=== PATIENT | female | born 1980 | race Caucasian/White ===

== ENCOUNTER → 2016-03-19 | Outpatient (CLI) | payer BC ==
[~2016-03-19] MED LIST: FLUO20CA36 PO; MTR600X PO; OXYC-57 PO; POLY335019 PO; PRENTAB26 PO; SENNTAB23 PO; TYLOTC500 PO
== END | disposition home or self-care (01) ==
LOC: C.LAB 12:09
PROVIDERS: ATTEND Obstetrics & Gynecology
DX: O09.00 Supervision of pregnancy with history of infertility, unspecified trimester (principal); Z3A.00 Weeks of gestation of pregnancy not specified

== ENCOUNTER → 2016-04-04 | Outpatient (CLI) | payer BC ==
[2016-04-04 14:52] LABS: URINE APPEARANCE CLOUDY (CLEAR); URINE BILIRUBIN NEG (NEG); URINE COLOR YELLOW; URINE EPITHELIAL CELL AUTO >30 /lpf (0-5); URINE NITRITE NEG (NEG); URINE SPECIFIC GRAVITY 1.008 (1.000-1.030); UROBILINOGEN NEG (NEG)
[2016-04-04 14:54] LABS: MANUAL MICROSCOPIC REQUIRED? NO; REVIEW REQ? NO
== END | disposition home or self-care (01) ==
LOC: C.LABSPEC 13:46
PROVIDERS: ATTEND Obstetrics & Gynecology
DX: O09.529 Supervision of elderly multigravida, unspecified trimester (principal); Z3A.00 Weeks of gestation of pregnancy not specified

== ENCOUNTER → 2016-04-11 | Outpatient (CLI) | payer BC ==
[2016-04-11 16:41] LABS: BASO % 0.3 %; BASO ABS # 0.02 K/uL (0-0.2); COMPLETE YES; EOS % 0.4 %; HEMATOCRIT 42.5 % (37-47); IG% 0.3 %; LYMPH % 34.3 %; LYMPH ABS # 2.69 K/uL (1.2-3.4); MEAN CELL VOLUME 91.4 fL (80-100); MEAN CORPUSCULAR HGB CONC 35.1 g/dl (32-36); MEAN PLATELET VOLUME 10.2 fL (7.4-10.4); MONO % 5.1 %; NEUT % 59.6 %; PLATELET COUNT 264 K/uL (130-400); RED BLOOD COUNT 4.65 M/uL (4.2-5.4); WHITE BLOOD COUNT 7.85 K/uL (4.8-10.8)
== END | disposition home or self-care (01) ==
LOC: C.LAB1850 15:10
PROVIDERS: ATTEND Obstetrics & Gynecology
DX: O09.529 Supervision of elderly multigravida, unspecified trimester (principal)

== ENCOUNTER → 2016-04-11 | Outpatient (CLI) | payer BC ==
[2016-04-14 00:49] LABS: CHLAMYDIA TRACH RNA*** NOT DETECTED (NOT DETECTED); GC (NEIS GONORRHOEAE)RNA** NOT DETECTED (NOT DETECTED)
== END | disposition home or self-care (01) ==
LOC: C.LABSPEC 17:43
PROVIDERS: ATTEND Obstetrics & Gynecology
DX: O09.529 Supervision of elderly multigravida, unspecified trimester (principal)

== ENCOUNTER → 2016-04-11 | Outpatient (CLI) | payer BC | END | disposition home or self-care (01) | LOC: C.PAPS 11:10 | PROVIDERS: ATTEND Obstetrics & Gynecology | DX: O09.521 Supervision of elderly multigravida, first trimester (principal); Z3A.00 Weeks of gestation of pregnancy not specified; Z87.898 Personal history of other specified conditions; R87.616 Satisfactory cervical smear but lacking transformation zone ==

== ENCOUNTER → 2016-06-09 | Outpatient (CLI) | payer BC ==
[2016-06-09 19:09] LABS: GTGD 50 Grams
[2016-06-13 15:50] LABS: AFP CONCENTRATION 65.2 NG/ML; AFP MULTIPLE OF MEDIAN 1.82; AFPTS GESTATIONAL AGE 16.6 WEEKS; AFPTS INSULIN DEP DIABETIC? NO; AFPTS MATERNAL WT 146 LBS; ALPHA-FETOPROTEIN RACE CAUCASIAN=W; EDD DETERMINED BY ULTRASOUND; HISTORY OF NTD NO; REPEAT SAMPLE? NO
== END | disposition home or self-care (01) ==
LOC: C.LAB1850 15:02
PROVIDERS: ATTEND Obstetrics & Gynecology
DX: O09.521 Supervision of elderly multigravida, first trimester (principal)

== ENCOUNTER → 2016-08-29 | Outpatient (CLI) | payer BC ==
[2016-08-29 14:34] LABS: URINE APPEARANCE CLEAR (CLEAR); URINE BILIRUBIN NEG (NEG); URINE COLOR YELLOW; URINE EPITHELIAL CELL AUTO 20-30 /lpf (0-5); URINE NITRITE NEG (NEG); URINE PH 7.5 (4.5-7.5); URINE SPECIFIC GRAVITY 1.011 (1.000-1.030); UROBILINOGEN NEG (NEG)
[2016-08-29 14:35] LABS: MANUAL MICROSCOPIC REQUIRED? NO; REVIEW REQ? NO
[2016-08-29 14:40] LABS: HEMATOCRIT 36.6 % (37-47)
[2016-08-29 14:41] LABS: GTGD 50 Grams
== END | disposition home or self-care (01) ==
LOC: C.LAB1850 12:26
PROVIDERS: ATTEND Obstetrics & Gynecology
DX: O34.219 Maternal care for unspecified type scar from previous cesarean delivery (principal); Z3A.00 Weeks of gestation of pregnancy not specified

== ENCOUNTER 2016-11-11 09:54 | Inpatient (IN) | payer BC, OTHER ==
[2016-11-11] VITALS (9 sets, daily range): BP systolic 121–154; BP diastolic 75–86; PULSE 63–72; TEMP 36.2–36.6; O2SAT 97–100; Ht 165.1 cm; Wt 76.4 kg
[~2016-11-11] VITALS: Ht 165.1 cm; Wt 76.4 kg
[~2016-11-11 09:54] MED LIST changes: -FLUO20CA36 PO
--- NOTE | 2016-11-11 12:16 | DIAGNOSTIC IMAGING REPORT ---
ULTRASOUND BIOPHYSICAL PROFILE CLINICAL HISTORY: PROLONGED DECELERATION IN MD OFFICE COMPARISON STUDY: No previous studies for comparison. FINDINGS: A single live fetus in cephalic presentation was visualized. The placenta was right lateral. The maternal cervical length was 2.6 cm. The femur measured 7.8 cm corresponding to an estimated postmenstrual age of 39 weeks 5 days +/- 3 weeks. The heart rate was 138. The amniotic fluid index was 10.8 cm. The fetus received 2 points for movement, tone and amniotic fluid. No breathing was observed. This yields a biophysical profile score of 6 out of 8 points IMPRESSION: Biophysical profile score of 6 out of 8 points Electronically signed by: Kaleb Nobles M.D. 11/11/2016 12:14 PM Dictated Date/Time: 11/11/2016 12:12 PM
[2016-11-11] MEDS ORDERED: LACTATED RINGER'S 1000ML 1,000 ML IV SCH (12:42)
[2016-11-11] MEDS ORDERED: CITRIC ACID/SODIUM CITRATE 15 ML UDC PO ONE (12:45)
[2016-11-11 13:02] LABS: BASO % 0.2 %; BASO ABS # 0.02 K/uL (0-0.2); EOS % 0.4 %; HEMATOCRIT 38.1 % (37-47); IG% 1.3 %; LYMPH ABS # 2.61 K/uL (1.2-3.4); MEAN CELL VOLUME 92.9 fL (80-100); MEAN CORPUSCULAR HEMOGLOBIN 31.5 pg (25-34); MEAN PLATELET VOLUME 10.5 fL (7.4-10.4); MONO % 5.8 %; NEUT % 69.3 %; PLATELET COUNT 187 K/uL (130-400); WHITE BLOOD COUNT 11.35 K/uL (4.8-10.8)
[2016-11-11 13:07] LABS: COMPLETE YES; MEAN CORPUSCULAR HGB CONC 33.9 g/dl (32-36)
[2016-11-11] MEDS ORDERED: CEFAZOLIN IV 2,000 MG in DEXTROSE 5% 50ML 50 ML IV SCH (13:15)
[2016-11-11] MEDS ORDERED: MORPHINE SULFATE PF 2MG/2ML SYR ONE (13:37)
--- NOTE | 2016-11-11 14:41 | HISTORY & PHYSICAL EXAMINATION ---
DATE OF ADMISSION: 11/11/2016 ADMITTING DIAGNOSES: 1. Term at 38+ weeks' gestational age. 2. Nonreassuring heart rate tracing. 3. Previous delivery. 4. Desired permanent surgical sterilization. ADMISSION HISTORY: The patient is a 36-year-old 5, para 1 with an EDC of 19 November at 38 and 6/7 weeks' gestational age who was admitted from the office for nonreassuring heart rate tracing. The patient was seen in the office today for routine obstetrical visit and had a nonstress test performed. The nonstress test was for advanced maternal age. The nonstress test was reactive, but there was a 4-minute spontaneous deceleration noted in the office. Because of the deceleration, the patient was sent to labor and delivery for further evaluation. Up until this point, the patient has had a benign course. Her EDC was established by dates and confirmed by a first trimester ultrasound. The patient's first delivery was a section at 39 weeks for breech presentation with preeclampsia. The patient had been counseled on the risks and benefits of a vaginal after versus a repeat section and the patient had opted for a repeat section, which had been scheduled for the 14 of November. Laboratory values for the show a blood type of A positive, antibody negative, rubella immune, and hepatitis B negative. She had a negative Panorama and a negative maternal serum AFP screen. She had a normal 1-hour Glucola x2 and she had GBS in her urine at her first visit. PAST MEDICAL HISTORY: OBSTETRICAL: As above. GYNECOLOGICAL: Abnormal Pap smear with LEEP. MEDICAL: None. SURGICAL: [place] teeth extraction and tonsillectomy. ALLERGIES: No known drug allergies. SOCIAL HISTORY: No smoking. FAMILY HISTORY: Noncontributory. REVIEW OF SYSTEMS: As per HPI. ADMISSION PHYSICAL EXAMINATION: GENERAL: Shows a gravid female in no acute distress. VITAL SIGNS: Blood pressure of 136/90 and a weight of 168 pounds. HEENT EXAMINATION: Unremarkable. NECK: Supple. LUNGS: Clear. HEART: With a regular rhythm and rate. ABDOMEN: Gravid, vertex, positive heart tones, estimated weight of 6-1/2 pounds. PELVIC: Shows the cervix to be long, thick and closed. EXTREMITIES: Show no deep calf tenderness. NEUROLOGIC: Grossly intact. IMPRESSION: A 36-year-old 5, para 1 at 38 and 6/7th weeks' gestational age for repeat section with bilateral tubal ligation. PLAN: The patient was monitored here on labor and delivery and while the tracing was reactive, she did have a spontaneous deceleration for 4 minutes at term. There was no explanation to explain this and given that the patient had this spontaneous deceleration, it was decided to proceed with a repeat section for the nonreassuring tracing. The patient also adamantly desires no further childbearing capacity. She had been counseled on the risks and benefits of the tubal including the risk of failure of 1%-3%. The patient understands. Tubal papers as well as operative permit has been signed and she wishes to proceed. LETTY
[2016-11-11] MEDS ORDERED: ONDANSETRON INJ 2 MG/ML 2 ML VIAL ONE (14:43)
[2016-11-11] MEDS ORDERED: SUCCINYLCHOLINE CHLORIDE 20 MG/ML 10 ML VIAL IV ONE (14:43)
[2016-11-11] MEDS ORDERED: PHENYLEPHRINE HCL INJ 10 MG/ML VIAL ONE (14:43)
[2016-11-11] MEDS ORDERED: PROPOFOL IV EMULSION 10 MG/ML 20 ML VIAL IV ONE (14:43)
[2016-11-11] MEDS ORDERED: OXYTOCIN INJ 10 UNITS/ML VIAL ONE (14:43)
[2016-11-11] MEDS ORDERED: FENTANYL CITRATE INJ 50 MCG/1 ML 2 ML VIAL ONE (14:46)
[2016-11-11] MEDS ORDERED: GLYCOPYRROLATE INJ 0.2 MG/ML VIAL ONE (14:50)
[2016-11-11] MEDS ORDERED: NEOSTIGMINE METHYLSULFATE 5 MG/5 ML SYR ONE (14:50)
[2016-11-11] MEDS ORDERED: SENNA 8.6 MG TAB PO PRN (15:00)
[2016-11-11] MEDS ORDERED: LANOLIN OINT EXT PRN ×2 (15:00)
[2016-11-11] MEDS ORDERED: BENZOCAINE 20% AER SPR 82.5 GM CAN EXT PRN (15:00)
[2016-11-11] MEDS ORDERED: HYDROCORTISONE ACETATE 25 MG SUPP PR PRN (15:00)
[2016-11-11] MEDS ORDERED: SUPERCREAM 0.870 % 15GM JAR EXT PRN (15:00)
[2016-11-11] MEDS ORDERED: MAGNESIUM HYDROXIDE SUSP 30 ML UDC PO PRN (15:00)
[2016-11-11] MEDS ORDERED: DEXAMETHASONE SOD INJ 4 MG/ML VIAL ONE (15:06)
--- NOTE | 2016-11-11 15:08 | [facility] Operative Report ---
Operative Report Operative Date Nov 11, 2016. Pre-Operative Diagnosis Term nonreassuring heartrate , previous caesarean section that desires permanent sterilization. Post-Operative Diagnosis Term nonreassuring heartrate , previous caesarean section that desires permanent sterilization. Procedure(s) Performed Repeat caesarean section for a living male child at 1437. Bilateral tubal ligation Surgeon Dr. Nevarez Water Service Dispatcher Surgeon(s) Dr. Arreaga Estimated Blood Loss 800 Findings Viable male infant, APGARS 9/9, 3420 grams. Normal-appearing uterus, fallopian tubes, & ovaries bilaterally Fluids 1500 Specimens placenta- hold cord blood arterial and venous cord gases portion of left and right fallopian tubes Drains [place] 200 ml, clear urine Anesthesia General Complication(s) None Disposition L&D I attest to the content of the Intraoperative Record and any orders documented therein. Any exceptions are noted below.
[2016-11-11] MEDS ORDERED: KETOROLAC TROMETHAMINE 30 MG/ML VIAL ONE (15:22)
[2016-11-11] MEDS ORDERED: NALOXONE HCL INJ 0.08 MG in SYRINGE 1.8 ML IV PRN (15:25)
[2016-11-11] MEDS ORDERED: SODIUM CHLORIDE 0.9% 1000ML 1,000 ML IV PRN (15:25)
[2016-11-11] MEDS ORDERED: NALOXONE HCL INJ 1 MG in SODIUM CHLORIDE 0.9% 1000ML 1,000 ML IV PRN (15:25)
[2016-11-11] MEDS ORDERED: LACTATED RINGER'S 1000ML 500 ML IV PRN (15:25)
[2016-11-11] MEDS ORDERED: ACETAMINOPHEN 1000 MG/100 ML IV IV ONE ×2 (15:29→15:30)
[2016-11-11] MEDS ORDERED: NALBUPHINE HCL INJ 10 MG/ML AMP IV PRN (15:30)
[2016-11-11] MEDS ORDERED: NALOXONE HCL 0.4 MG/1 ML VIAL/CARP IV PRN (15:30)
[2016-11-11] MEDS ORDERED: EpHEDrine SULFATE INJ 50 MG/ML AMP IV PRN (15:30)
[2016-11-11] MEDS ORDERED: MoRPHine SULFATE 2 MG/ML CARP IV PRN (15:30)
[2016-11-11] MEDS ORDERED: MEPERIDINE HCL 25 MG/ML CARP IV PRN (15:30)
[2016-11-11] MEDS ORDERED: ONDANSETRON INJ 2 MG/ML 2 ML VIAL IV PRN (15:30)
[2016-11-11] MEDS ORDERED: MoRPHine SULFATE PF 1 MG/ML 10 ML AMP/VIAL INT SPINAL PRN (15:30)
[2016-11-11] MEDS ORDERED: DiphenhydrAMINE HCL 50 MG/ML VIAL IV PRN (15:30)
[2016-11-11] MEDS ORDERED: DIPHTHERIA/TETANUS/PERTUSSIS 0.5 ML SYR/VIAL IM. ONE (15:30)
[2016-11-11] MEDS ORDERED: DC INTRASPINAL MORPHINE SCH (15:30)
[2016-11-11] MEDS ORDERED: NO NARCOTICS OR SEDATIVES SCH (15:30)
--- NOTE | 2016-11-11 15:30 | Anesthesiology Progress Note ---
Anesthesia Post Op Note Date & Time Nov 11, 2016 at 15:29 Notes Mental Status: alert / awake / arousable, participated in evaluation Pt Amnestic to Procedure: Yes Nausea / Vomiting: adequately controlled Pain: adequately controlled, improving with treatment Airway Patency, RR, SpO2: stable & adequate BP & HR: stable & adequate Hydration State: stable & adequate Neuraxial Anesthesia: was administered, sensory block is resolving Anesthetic Complications: no major complications apparent
[2016-11-11] MEDS: KETOROLAC TROMETHAMINE 30 MG/ML VIAL IV. PRN ×2 (15:37→21:37)
[2016-11-11] MEDS ORDERED: LORAZEPAM INJ 0.5 MG in SYRINGE 0.25 ML IV STA (16:15)
[2016-11-11] MEDS ORDERED: HYDROmorphone INJ 1 MG/ML SYR IV PRN (16:15)
[2016-11-11] MEDS: OXYTOCIN INJ 20 UNITS in LACTATED RINGER'S 1000ML 1,000 ML IV SCH (16:40)
[2016-11-11] MEDS: SIMETHICONE 80 MG CHEW PO SCH ×2 (17:25→20:03)
--- NOTE | 2016-11-11 18:22 | OPERATIVE REPORT ---
DATE OF OPERATION: 11/11/2016 PREOPERATIVE DIAGNOSES: 1. Term . 2. Nonreassuring heart rate tracing. 3. Previous section. 4. Desired permanent surgical sterilization. POSTOPERATIVE DIAGNOSES: Same. PROCEDURES PERFORMED: 1. Repeat low cervical transverse section. 2. Bilateral tubal ligation. SURGEON: Dr. Nevarez. ASBESTOS SHINGLE INSPECTOR: Dr. Loi Arreaga. ANESTHESIA: General endotracheal due to failed spinal. FINDINGS: Viable male with Apgars of 8 and 9 and weight of 7 pounds 8 ounces. Normal appearing tubes and ovaries bilaterally. Arterial and venous cord gases are pending. Bilateral tubal ligation performed. PROCEDURE IN DETAIL: The patient was taken to the operating room and initially had a spinal anesthesia placed and was prepped and draped in a sterile fashion. After 15 minutes, there was not an adequate spinal level estimated approximately T12-L1. At this point, anesthesia felt prudent to proceed with general endotracheal anesthesia. After placement of the endotracheal tube, a Pfannenstiel type incision through previous surgical scar was made. Underlying subcutaneous tissue was dissected down to the ventral abdominal fascia, which was nicked and opened in a horizontal manner. Preperitoneal fascia was dissected away until the peritoneal cavity was entered and opened in a vertical manner. Bladder blade was placed. Uterus was entered sharply and extended in a semi-lunar fashion manually. Viable male infant with description as above was delivered. Cord was clamped and cut and the baby was passed off to pediatric, who was in attendance for the delivery. Cord gases and cord blood samples obtained. Placenta was delivered spontaneously and the uterus was exteriorized. Uterine cavity was wiped clean of any residual blood tissue and/or clot. Hemabate 250 mcg was injected directly into the myometrium. Uterine incision was then closed with 2 layers of 4-0 Vicryl, the first a running locking stitch and the second an imbricating stitch. Hemostasis was achieved. Dissection was then turned to the adnexa. The right fallopian tube was isolated followed to the fimbriated end, a segment of which was elevated, doubly ligated with 0 plain suture, cut and removed from the field. In a similar fashion, the left fallopian tube was isolated followed to the fimbriated end, a segment of which was elevated, doubly ligated with 0 plain suture, cut and removed from the field. Hemostasis present and the uterus was returned to the pelvic cavity. Pericolic gutters were cleared bilaterally of any blood tissue and/or clot. The uterine incision and tubal stumps were inspected for hemostasis, which was present. Sponge and needle count was correct. The rectus muscles were plicated in the midline with a running 2-0 Vicryl stitch. The fascia was closed laterally with a running 0 Vicryl suture. Subcutaneous tissue was irrigated with warm saline and the skin incision was closed with a 4-0 Vicryl subcuticular suture. Sterile dressing was applied and the patient was taken to the recovery room in satisfactory condition. I attest to the content of the Intraoperative Record and any orders documented therein. Any exception s are noted below.
[2016-11-12] VITALS (13 sets, daily range): BP systolic 115–131; BP diastolic 71–76; PULSE 66–84; TEMP 36.5–36.7; O2SAT 96–98
[2016-11-12] MEDS: OXYTOCIN INJ 20 UNITS in LACTATED RINGER'S 1000ML 1,000 ML IV SCH (01:02)
[2016-11-12] MEDS: KETOROLAC TROMETHAMINE 30 MG/ML VIAL IV. PRN (05:55)
--- NOTE | 2016-11-12 06:48 | Progress Note ---
Subjective Nov 12, 2016. Subjective conversation w/ patient, physical exam, chart review, lab review Ambulation: limited ambulation (not oob yet) Voiding: martell catheter in place Passing Gas: No Diet Tolerance: Clear Liquids (no N/V) Lochia: Small Feeding Type: Bottle Feeding Pain: Notes some cramping Comment: Found pt lying upright in bed, appears calm. Says she hasn't been out of bed yet but plans on it this morning. Says pain controlled overnight. No acute c/ o. Review of Systems Constitutional: No fever, No chills Respiratory: No cough, No shortness of breath Cardiac: No chest pain, No edema Abdomen: No nausea, No vomiting, No diarrhea Objective Vital Signs Date Time Temp Pulse Resp B/P (MAP) Pulse Ox O2 Delivery O2 Flow Rate FiO2 11/12/16 06:00 16 97 11/12/16 05:00 16 97 11/12/16 04:00 16 96 11/12/16 03:50 36.7 68 16 115/76 (89) 96 Room Air 11/12/16 03:00 16 97 11/12/16 02:00 16 97 11/12/16 01:00 16 98 11/12/16 00:00 16 98 11/11/16 23:25 99 Room Air 11/11/16 23:25 36.6 72 16 121/75 (90) 99 Room Air 11/11/16 23:00 18 98 11/11/16 22:00 20 99 11/11/16 21:00 20 100 11/11/16 20:00 18 100 11/11/16 19:25 36.4 66 20 138/86 (103) 98 Room Air 11/11/16 19:25 98 Room Air 11/11/16 19:00 16 100 11/11/16 18:25 36.2 63 20 154/83 (106) 100 Room Air 11/11/16 17:55 20 97 11/11/16 17:55 97 Room Air 11/11/16 17:55 36.6 66 20 127/79 (95) 97 Physical Exam General Appearance: WD/WN, NO APPARENT DISTRESS Respiratory/Chest: lungs clear, normal breath sounds, no respiratory distress Cardiovascular: regular rate, rhythm, no edema, no murmur Abdomen: normal bowel sounds, non tender, soft Fundus: Firm, Tender (minimal), Relation to Umbilicus (at umbilicus) Incision Description: Clean, Dry & Intact (dressing in place) Extremities: non-tender, no calf tenderness Laboratory Results Last 24 Hours Test 11/11/16 12:49 11/12/16 06:00 White Blood Count 11.35 K/uL Red Blood Count 4.10 M/uL Hemoglobin 12.9 g/dL Hematocrit 38.1 % Mean Corpuscular Volume 92.9 fL Mean Corpuscular Hemoglobin 31.5 pg Mean Corpuscular Hemoglobin Concent 33.9 g/dl Platelet Count 187 K/uL Mean Platelet Volume 10.5 fL Neutrophils (%) (Auto) 69.3 % Lymphocytes (%) (Auto) 23.0 % Monocytes (%) (Auto) 5.8 % Eosinophils (%) (Auto) 0.4 % Basophils (%) (Auto) 0.2 % Neutrophils # (Auto) 7.86 K/uL Lymphocytes # (Auto) 2.61 K/uL Monocytes # (Auto) 0.66 K/uL Eosinophils # (Auto) 0.05 K/uL Basophils # (Auto) 0.02 K/uL RDW Standard Deviation 43.0 fL RDW Coefficient of Variation 12.9 % Immature Granulocyte % (Auto) 1.3 % Immature Granulocyte # (Auto) 0.15 K/uL Assessment and Plan Post-Op Day#: 1 Continue Routine Care: 36F s/p for nonreassuring heart rate tracing, s/p tubal ligation, now PPD #1. - Blood type A positive. GBS positive. Rubella immune. - Vital signs reviewed and stable. - Pain controlled with toradol overnight. - No leg swelling or tenderness on calf palpation. Encourage ambulation. - Pt plans on bottle feeding only. - Hemoglobin pre-delivery 12.9, post-delivery pending this am. Bleeding has improved. Continue to monitor clinically. - Continue routine post delivery care. - Pt agreed with above plan, all current questions answered. Ananth Arreaga MD, PGY1 Mailing Specialist Physician Supervision Note: I interviewed and examined the patient. Discussed with Dr. Arreaga and agree with findings and plan as documented in the note. Any exceptions or clarifications are listed here: Patient was on Prozac prior to , wants to restart. Will order Documented By: Vu Nevarez Resident Tracking Resident Involvement: Resident Care Provided Care Provided: OB Delivery (OB rounds)
[2016-11-12] MEDS: FERROUS SULFATE 325 MG TAB PO SCH (07:26)
[2016-11-12] MEDS: PRENATAL VITAMIN TAB PO SCH (07:26)
[2016-11-12] MEDS: SIMETHICONE 80 MG CHEW PO SCH ×4 (07:27→19:47)
[2016-11-12 07:29] LABS: BASO % 0.1 %; BASO ABS # 0.02 K/uL (0-0.2); COMPLETE YES; EOS % 0.2 %; HEMATOCRIT 30.2 % (37-47); IG% 0.5 %; LYMPH % 18.9 %; LYMPH ABS # 2.75 K/uL (1.2-3.4); MEAN CELL VOLUME 92.6 fL (80-100); MEAN CORPUSCULAR HEMOGLOBIN 31.6 pg (25-34); MEAN CORPUSCULAR HGB CONC 34.1 g/dl (32-36); MEAN PLATELET VOLUME 10.5 fL (7.4-10.4); NEUT % 73.3 %; PLATELET COUNT 161 K/uL (130-400); RED BLOOD COUNT 3.26 M/uL (4.2-5.4); WHITE BLOOD COUNT 14.56 K/uL (4.8-10.8)
[2016-11-12] MEDS: FLUOXETINE HCL 20 MG CAP PO SCH (07:48)
[2016-11-12] MEDS ORDERED: ONDANSETRON INJ 2 MG/ML 2 ML VIAL IV PRN (08:15)
[2016-11-12] MEDS ORDERED: PROMETHAZINE HCL INJ 25 MG in SODIUM CHLORIDE 0.9% 50ML 50 ML IV PRN (08:15)
[2016-11-12] MEDS ORDERED: KETOROLAC TROMETHAMINE 30 MG/ML VIAL IV. PRN (08:15)
[2016-11-12] MEDS ORDERED: DiphenhydrAMINE HCL 50 MG/ML VIAL IV PRN (08:15)
[2016-11-12] MEDS: OXYCODONE/ACETAMINOPHEN 5-325 TAB PO PRN ×3 (10:04→19:48)
[2016-11-12] MEDS: IBUPROFEN 600 MG TAB PO PRN ×3 (10:04→19:48)
--- NOTE | 2016-11-12 19:19 | Discharge Instructions ---
Discharge Instructions Date of Service Nov 12, 2016. Admission Reason for Admission: Extended Monitoring Discharge Discharge Diagnosis / Problem: after surgery Discharge Goals Goal(s): Routine recovery after Medications Continue Dispensed Medications: supercream, dermaplast, tucks, lansinoh Activity Recommendations Activity Limitations: as noted below . Instructions / Follow-Up Instructions / Follow-Up ACTIVITY RECOMMENDATIONS: * Gradual return to full activity over the next 2-3 weeks. * No lifting - nothing heavier than baby over the next 2-3 weeks. * Do not engage in vigorous exercise, sexual activity or sports until cleared by your physician. * Do not drive or operate any motorized equipment until cleared by your physician. * You may shower/bathe daily. MEDICATIONS: For discomfort or pain, you may use Acetaminophen (Tylenol), Ibuprofen (Advil), or Naproxen (Aleve) following the package directions. For constipation you may use Colace following the package directions. BREAST CARE: If you are not breast feeding: * Wear a supportive bra 24 hours a day for one to two weeks. * Avoid stimulating your breasts and nipples as much as possible during the first few weeks after delivery. * When taking a shower, have the warm water hit your back, not breasts. * When your breasts feel full, apply ice packs. Usually three to four times a day helps ease the discomfort. * Take a mild pain medication (Tylenol / Motrin) when you are uncomfortable. If breast feeding: * Use breast milk to lubricate nipples. Lansinoh cream may be used for sore nipples. You do not need to remove cream prior to breast feeding. If using a different brand of cream, check the label for directions regarding removal of cream prior to nursing. * Wear a supportive bra. * If having problems with breasts or breast feeding, call a wellness consultant or your health care provider. SPECIAL CARE INSTRUCTIONS: When you are discharged from the hospital, it is important for you to follow the instructions listed below: * During the first week at home, you should be able to care for yourself and your baby. In addition, the usual light household activities are encouraged. * Limit your activities to the way you feel. Do not try to clean the house or move furniture. Be sensible. * If you actively engage in sports and have done so up until the time of your delivery, you may resume these activities as soon as you feel able. This may take up to one month or even longer. Use good judgment. * Continue to take your vitamins for at least six weeks after the of your baby. * Your diet need not be limited unless you were on a special diet before your delivery. Breast-feeding mothers need around 2500 calories per day and at least 64-80 ounces of fluid per day (8 to 10 glasses). * You should eat foods from the four major food groups. Crash diets or fad diets are to be avoided. Eating lean meats, fresh fruits and vegetables, low-fat dairy products, high fiber foods and a regular exercise program, will help you get back to your pre- weight without putting your health at risk. * Constipation is sometimes a problem after delivery. Take a mild laxative as needed. If breast feeding, Milk of Magnesia is acceptable to use. You may use a suppository or Fleets enema. * A daily shower or tub bath is suggested. Wash incision daily with warm soapy water and pat dry. It doesn't need to be covered unless drainage is present. * A bloody vaginal discharge will usually continue until around four weeks . A small amount of bleeding may continue for as long as six weeks. Vaginal discharge changes from the bright red bleeding after delivery to pink then brownish and finally yellowish-pink before becoming white and disappearing. * Bleeding may increase with activity. Your first period may come in 4-8 weeks. If you are breast feeding, your period may be delayed even longer. * Zeigler (sex) can begin whenever both you and your partner feel comfortable and do not have any form of genital infection. It is recommended that you wait at least six weeks for internal and external healing to occur. If you have questions, please talk to your health care practitioner. A condom should be used to prevent infection and . * Foreplay, gentle intercourse and lubrication is very important the first several times to prevent pain. A water-based lubricant such as K-Y jelly or Astroglide may be used. * If you have RH negative blood and your baby is RH positive, you will receive RHOGAM by injection prior to discharge. The nurse will give you a card to keep with you that has the date and place that you received RHOGAM after delivery. * During your care, you had a Rubella screen done to check for the presence of rubella antibodies in your blood. If your test was negative, you will receive a Rubella vaccine prior to discharge. This vaccine may cause a fever, soreness at the injection site and flu-like symptoms. If these symptoms persist, notify your health care practitioner. is not advised for one month after a Rubella vaccine. * Verbalizes understanding of car seat law as reviewed with patient nursing. * Car Seat hand-out given and reviewed with patient by nursing. * Shaken baby information reviewed with patient by nursing. Call you doctor if: * Heavy bleeding (saturating several pads an hour) or passing clots the size of your fist. * A fever >101 degrees F (38.3 degrees C) on two occasions four hours apart and /or chills. * Unusual pain in the pelvic or vaginal areas. * Call the doctor for any increased redness, drainage or swelling around the incision and any pain unrelieved by prescribed pain medication. * "Baby Blues" lasting longer than two weeks. If you have any questions or concerns, call your health care practitioner at . FOLLOW UP VISIT: * Please call the office at to schedule a 6 week examination. It is important you keep this appointment. It is important for you to make arrangements for either yearly or twice yearly check-ups thereafter. Current Hospital Diet Patient's current hospital diet: Clear Liquid Diet Discharge Diet Recommended Diet: Regular Diet Procedures Procedures Performed: Repeat caesarean section for a living male child at 1437. Bilateral tubal ligation Pending Studies Studies pending at discharge: yes List of pending studies: pathology Medical Emergencies . Who to Call and When: Medical Emergencies: If at any time you feel your situation is an emergency, please call [phone] immediately. . Non-Emergent Contact Non-Emergency issues call your: Hot Tar Roofer . . "Provider Documentation" section prepared by Catherine Nicole. . VTE Core Measure Inpt VTE Proph given/why not?: [facility] [place] Search Results: patient reviewed within database, no issues identified
[2016-11-12] MEDS ORDERED: BISACODYL 5 MG TABEC ONE (19:43)
[2016-11-12] MEDS ORDERED: BISACODYL 5 MG TABEC PO ONE (22:00)
[2016-11-13] MEDS: IBUPROFEN 600 MG TAB PO PRN ×4 (02:05→19:56)
[2016-11-13] MEDS: OXYCODONE/ACETAMINOPHEN 5-325 TAB PO PRN ×5 (02:06→19:56)
[2016-11-13 06:07] LABS: HEMATOCRIT 31.3 % (37-47)
[2016-11-13] MEDS: SIMETHICONE 80 MG CHEW PO SCH ×4 (07:23→19:58)
[2016-11-13] MEDS: FERROUS SULFATE 325 MG TAB PO SCH (07:24)
[2016-11-13] MEDS: PRENATAL VITAMIN TAB PO SCH (07:24)
[2016-11-13 07:30] VITALS: BP 136/90; PULSE 86; TEMP 36.7; O2SAT 96
[2016-11-13] MEDS: FLUOXETINE HCL 20 MG CAP PO SCH (07:30)
--- NOTE | 2016-11-13 08:03 | Progress Note ---
Subjective Nov 13, 2016. Subjective conversation w/ patient Ambulation: ambulating normally Voiding: no voiding problems Passing Gas: No Diet Tolerance: Clear Liquids Lochia: Small Feeding Type: Bottle Feeding Pain: gas pain Objective Vital Signs Date Time Temp Pulse Resp B/P (MAP) Pulse Ox O2 Delivery O2 Flow Rate FiO2 11/12/16 23:59 96 Room Air 11/12/16 15:00 36.6 66 18 131/72 (91) 97 Room Air 11/12/16 15:00 97 Room Air 11/12/16 11:30 97 Room Air 11/12/16 11:30 36.6 70 18 116/71 (86) 97 Room Air 11/12/16 11:30 8 97 11/12/16 08:30 18 97 Physical Exam General Appearance: WELL-APPEARING, WD/WN, NO APPARENT DISTRESS Respiratory/Chest: lungs clear Cardiovascular: regular rate, rhythm Abdomen: normal bowel sounds, non tender, soft Fundus: Firm, Relation to Umbilicus (2 down, appro tender) Incision Description: Clean, Dry & Intact Extremities: non-tender Laboratory Results Last 24 Hours Test 11/13/16 05:54 Hemoglobin 10.6 g/dL Hematocrit 31.3 % Assessment and Plan Post-Op Day#: 2 Continue Routine Care: stable, routine care. enc ambulation to help with bowel function. rec clears only until passing gas due to her discomfort
[2016-11-13] MEDS ORDERED: OXYC-57 PO (08:04)
[2016-11-13] MEDS ORDERED: MTR600X PO (08:04)
[2016-11-13] MEDS ORDERED: BISACODYL 10 MG SUPP PR PRN (15:00)
[2016-11-13 15:45] VITALS: BP 138/88; PULSE 63; TEMP 36.5; O2SAT 97
[2016-11-13 20:35] VITALS: BP 133/88; PULSE 68; TEMP 36.7
[2016-11-13 23:20] VITALS: BP 134/78; PULSE 82; TEMP 36.8; O2SAT 97
[2016-11-14] MEDS: IBUPROFEN 600 MG TAB PO PRN ×3 (05:22→18:06)
[2016-11-14] MEDS: OXYCODONE/ACETAMINOPHEN 5-325 TAB PO PRN ×3 (05:23→18:06)
--- NOTE | 2016-11-14 06:36 | Progress Note ---
Subjective Nov 14, 2016. Subjective conversation w/ patient, physical exam, chart review, lab review Ambulation: ambulating normally Voiding: no voiding problems Passing Gas: Yes Diet Tolerance: Regular Diet Lochia: Small Feeding Type: Bottle Feeding Pain: "Burning" pain along right aspect of incision, otherwise sore Comment: Found pt standing in the nursery. Says passing gas, ate solid foods without N/V , feels sore and "burning" around incision. Otherwise no acute c/o. Review of Systems Constitutional: No fever, No chills Respiratory: No cough, No shortness of breath Cardiac: No chest pain Abdomen: No nausea, No vomiting, No diarrhea Female : No dysuria Objective Vital Signs Date Time Temp Pulse Resp B/P (MAP) Pulse Ox O2 Delivery O2 Flow Rate FiO2 11/13/16 23:20 36.8 82 18 134/78 (96) 97 Room Air 11/13/16 23:20 97 Room Air 11/13/16 20:35 36.7 68 18 133/88 (103) 11/13/16 15:45 36.5 63 18 138/88 (105) 97 Room Air 11/13/16 15:45 97 Room Air 11/13/16 07:30 96 Room Air 11/13/16 07:30 36.7 86 18 136/90 (105) 96 Room Air Physical Exam General Appearance: WELL-APPEARING, WD/WN, NO APPARENT DISTRESS Respiratory/Chest: lungs clear, normal breath sounds Cardiovascular: regular rate, rhythm, no murmur Abdomen: normal bowel sounds, non tender, soft Fundus: Firm, Tender (mild), Relation to Umbilicus (approx three down) Incision Description: Clean, Dry & Intact (dermabond in place, no d/c or surrounding erythema) Extremities: normal range of motion, no calf tenderness, + pedal edema ( minimal bilateral edema) Assessment and Plan Post-Op Day#: 3 Continue Routine Care: 36F s/p for HR deceleration, s/p tubal ligation, now PPD #3. - Blood type A positive. GBS positive. Rubella immune. - Vital signs reviewed and stable. - Pain controlled with motrin & percocet. - No leg swelling or tenderness on calf palpation. Encourage ambulation. - Pt is bottle feeding. - Hemoglobin pre-delivery 12.9, post-delivery trended 10.3 & 10.6. Continue to monitor clinically. - Restarted home Prozac for anxiety. - Continue routine post delivery care. - Pt agreed with above plan, all current questions answered. Ananth Arreaga MD, PGY1 Brand Advisor Physician Supervision Note: I was present with Dr. Arreaga during the history and exam. I discussed the case with the resident and agree with the findings and plan as documented in the note. Any exceptions or clarifications are listed here: Desires d/c home to nesting. Baby will need to stay in nursery. Documented By: Catherine Nicole Resident Tracking Resident Involvement: Resident Care Provided Care Provided: OB Delivery (OB rounds)
[2016-11-14 07:35] VITALS: BP 139/82; PULSE 65; TEMP 36.7; O2SAT 98
[2016-11-14] MEDS: FERROUS SULFATE 325 MG TAB PO SCH (07:44)
[2016-11-14] MEDS: FLUOXETINE HCL 20 MG CAP PO SCH (07:44)
[2016-11-14] MEDS: SIMETHICONE 80 MG CHEW PO SCH ×3 (07:44→18:05)
[2016-11-14] MEDS: PRENATAL VITAMIN TAB PO SCH (07:44)
[2016-11-14] MEDS ORDERED: FLUO20CA36 PO (08:00)
[2016-11-14 15:15] VITALS: BP 151/91; PULSE 67; TEMP 36.3; O2SAT 98
[2016-11-14 15:52] VITALS: BP_DIAS 91; PULSE 67; TEMP 36.3
--- NOTE | 2016-11-15 08:44 | DISCHARGE SUMMARY ---
ADMITTING DIAGNOSES: 1. Term at 38+ weeks' gestational age. 2. Nonreassuring heart rate tracing. 3. Previous section. 4. Desired permanent surgical sterilization. POSTOPERATIVE DIAGNOSES: Same. PROCEDURES PERFORMED: 1. Repeat low cervical transverse section. 2. Bilateral tubal ligation. DISCHARGE MEDICATIONS: 1. Percocet 5/325, 1-2 p.o. q. 4-6 hours p.r.n. pain. 2. Motrin 600 mg p.o. q. 6 hours p.r.n. pain. 3. Prozac 40 mg p.o. q. daily. ADMISSION HISTORY: The patient is a 36-year-old 5, para 1 with an EDC of 19 November at 38 and 6/7th weeks' gestational age, who presented to the labor and delivery from the office for nonreassuring heart rate tracing. The patient was seen in the office today for routine obstetrical visit and had a nonstress test performed. A nonstress test was done for advanced maternal age. Nonstress test was reassuring, but there was a 4-minute spontaneous deceleration noted in the office. Because of the decelerations, the patient was sent to labor and delivery for further evaluation. Up until this point, the patient has had a benign course. Her EDC was established by dates and confirmed by first trimester ultrasound. The patient's first delivery was a section at 39 weeks' gestational age for breech presentation with preeclampsia. The patient had been counseled on the risks and benefits of a vaginal after and the patient has opted for a repeat section, which was scheduled for 14 November. Laboratory values for the showed a blood type of A positive, antibody negative, and rubella immune. She had a negative Panorama screen and a negative maternal serum AFP. She had a normal 1-hour Glucola x2 and had GBS bacteria at the first visit. ADMISSION PHYSICAL EXAMINATION: GENERAL: A gravid female in no acute distress. VITAL SIGNS: Blood pressure 136/90 and a weight of 168 pounds. HEENT: Unremarkable. NECK: Supple. LUNGS: Clear. HEART: With a regular rhythm and rate. ABDOMEN: Gravid, vertex, positive heart tones, estimated weight of 6-1/2 pounds. PELVIC: Showed the cervix to be long, thick and closed. EXTREMITIES: Showed no deep calf tenderness. NEUROLOGIC: Grossly intact. ADMISSION LABORATORY VALUES: Showed an H&H of 12.9 and 38.1. HOSPITAL COURSE: The patient was monitored on labor and delivery for an extended period of time and while the tracing was reactive, she had had a spontaneous deceleration for 4 minutes at term in the office. There was no explanation to explain this and given that the patient had had a spontaneous deceleration, it was decided to proceed with a repeat section for the nonreassuring tracing. The patient also adamantly desired no further childbearing capacity and she had been counseled on the risks and benefits of the tubal including the risk of failure of 1%-3%. Anesthesia and pediatrics were notified and the patient was taken to the operating room. The patient had a spinal anesthesia placed; however, the level did not climb of above approximately T12, which necessitated a general endotracheal anesthesia. The patient delivered a viable male with Apgars of 8 and 9 and a weight of 7 pounds 8 ounces. Normal appearing tubes and ovaries bilaterally. Bilateral segment of fallopian tubes were removed for tubal ligation. Postoperatively, the patient did well. [place] was removed on the first postoperative day. H&H came back at 10.3 and 30.2. The baby suffered some transient tachypnea of the and chest x-ray was suggestive of possible pneumonia and the baby was started on antibiotics. On postoperative day #3, the patient requested discharge to nesting status to allow ambulation out of the hospital. She was given the routine discharge instructions and the prescriptions for the medications as listed as above. She is going to follow up in the office in 2 weeks' time for a postoperative check, but as always she was instructed to call with any questions, problems or difficulties. LETTY
== END 2016-11-14 18:00 | disposition home or self-care (01) | DRG 766 ==
LOC: C.OPB 09:54 → C.LD 09:54 → C.OPB 12:45 → C.LD 12:45 → C.OBG 18:01
PROVIDERS: ADMIT Obstetrics & Gynecology; ATTEND Obstetrics & Gynecology
PROC: 0UB70ZZ Excision of Bilateral Fallopian Tubes, Open Approach (ICD-10-PCS; principal; 2016-11-11 13:12)
PROC: 10D00Z1 Extraction of Products of Conception, Low, Open Approach (ICD-10-PCS; principal; 2016-11-11 13:12)
DX: O76 Abnormality in fetal heart rate and rhythm complicating labor and delivery (principal); O34.211 Maternal care for low transverse scar from previous cesarean delivery; Z37.0 Single live birth; O99.824 Streptococcus B carrier state complicating childbirth; O09.523 Supervision of elderly multigravida, third trimester; Z3A.38 38 weeks gestation of pregnancy; Z30.2 Encounter for sterilization

== ENCOUNTER → 2017-04-06 | Outpatient (CLI) | payer OTHER ==
[~2017-04-06] MED LIST changes: +FLUO20CA36 PO; -POLY335019 PO; -TYLOTC500 PO
[2017-04-06 15:59] LABS: HEMATOCRIT 44.1 % (37-47); HEMOGLOBIN 15.4 g/dL (12.0-16.0); MEAN CELL VOLUME 90.2 fL (80-100); MEAN CORPUSCULAR HEMOGLOBIN 31.5 pg (25-34); MEAN CORPUSCULAR HGB CONC 34.9 g/dl (32-36); MEAN PLATELET VOLUME 9.5 fL (7.4-10.4); PLATELET COUNT 243 K/uL (130-400); RED CELL DISTRIBUTION WIDTH CV 12.8 % (11.5-14.5); RED CELL DISTRIBUTION WIDTH SD 42.1 fL (36.4-46.3); WHITE BLOOD COUNT 6.27 K/uL (4.8-10.8)
== END | disposition home or self-care (01) ==
LOC: C.LAB1850 15:26
PROVIDERS: ATTEND Physician Assistant
DX: N92.6 Irregular menstruation, unspecified (principal)